=== PATIENT | male | born 1985 | race African-American/Black ===

== ENCOUNTER 2017-08-20 20:12 | Emergency (ER) | payer MEDICAID, OTHER ==
[~2017-08-20] VITALS: Ht 180.3 cm; Wt 90.9 kg
[2017-08-20] MEDS ORDERED: PROPOFOL 10 MG/ML, 20ML ONE (20:55)
[2017-08-20] MEDS ORDERED: HYDROmorphone 1 MG/ML, 1ML IVPush PRN (21:00)
[2017-08-20] MEDS ORDERED: SODIUM CHLORIDE FLUSH 10ML SYR IVF ONE (21:00)
[2017-08-20] MEDS ORDERED: ONDANSETRON 2MG/ML, 2ML IVPush ONE (21:00)
[2017-08-20] MEDS ORDERED: PROPOFOL 10 MG/ML, 20ML IVPush ONE (21:30)
[2017-08-20 21:54] VITALS: BP 122/64
== END 2017-08-20 21:59 | disposition home or self-care (01) ==
LOC: ED 21:53
DX: S43.084A Other dislocation of right shoulder joint, initial encounter (principal); J45.909 Unspecified asthma, uncomplicated; X58.XXXA Exposure to other specified factors, initial encounter; Y93.89 Activity, other specified; Y99.8 Other external cause status; Y92.099 Unspecified place in other non-institutional residence as the place of occurrence of the external cause
CPT/HCPCS: 23650; 73030; 99152; 99153; 99285; J2704

== ENCOUNTER 2018-03-31 01:45 | Emergency (ER) | payer SELFPAY ==
[~2018-03-31] VITALS: Ht 180.3 cm; Wt 96.0 kg
[2018-03-31] MEDS ORDERED: PROPOFOL 10 MG/ML, 20ML ONE (02:23)
[2018-03-31] MEDS ORDERED: PROPOFOL 10 MG/ML, 20ML IVPush ONE ×2 (02:30→03:30)
[2018-03-31] MEDS ORDERED: ACETAMINOPHEN 500 MG TABLET PO ONE (03:30)
[2018-03-31] MEDS ORDERED: ACETAMINOPHEN 500 MG TABLET ONE (03:54)
[2018-03-31 05:00] VITALS: BP 129/84
== END 2018-03-31 05:03 | disposition home or self-care (01) ==
LOC: ED 04:50
DX: S43.014A Anterior dislocation of right humerus, initial encounter (principal); X58.XXXA Exposure to other specified factors, initial encounter; Y93.89 Activity, other specified; Y92.89 Other specified places as the place of occurrence of the external cause; Y99.8 Other external cause status
CPT/HCPCS: 23650; 73020; 99152; 99153; 99285; J2704